=== PATIENT | male | born 1960 | race Caucasian/White ===

== ENCOUNTER 2017-05-30 12:22 | Emergency (ER) | payer BC ==
[~2017-05-30] VITALS: Ht 177.8 cm; Wt 83.7 kg
[2017-05-30 12:27] VITALS: BP 112/75
[2017-05-30] MEDS ORDERED: MELA3TAB PO (13:23)
== END 2017-05-30 13:50 | disposition home or self-care (01) ==
LOC: ED 13:44
DX: H81.392 Other peripheral vertigo, left ear (principal); H81.12 Benign paroxysmal vertigo, left ear
CPT/HCPCS: 99283